=== PATIENT | female | born 1945 | race Caucasian/White ===

== ENCOUNTER → 2018-05-04 | Outpatient (CLI) | payer OTHER ==
[~2018-05-04] MED LIST: CLONAZEPAM 0.50.5 M1 PO; CRESTOR10 MG PO; IMDUR 30 MG TAB30 M1 PO; MIRALAX17 GM PO; NITROGLYCERIN0.4 MG SUBLING; OXYCONTIN40 MG PO; PLAVIX 75 MG TA75 M1 PO; SYNTHROID200 MCG PO; TRAZODONE HCL50 MG PO; TRILIPIX45 MG PO; ZANAFLEX4 MG PO
--- NOTE | ~2018-05-04 | EKG ---
[address] [address] ELECTROCARDIOGRAM REPORT Name: GUILLE WRIGHT Room #: [facility]#: [id number] Admission: 05/04/18 Attend Phys: Ashok Ren MD Discharge: Date of : 49 Report #: [id number] THIS REPORT FOR: //name// [facility] Test Date: 2018-05-04 Test Time: 06:46:19 Pat Name: GUILLE WRIGHT Department: Room: Gender: F [employer]: ELADIO : 1945 Requested By: Ashok Ren Order Number: [id number] : Moiz Sanchez Measurements Intervals [place] Rate: 65 P: 50 [place]: 130 QRS: 10 QRSD: 103 T: 159 QT: 473 QTc: 492 Interpretive Statements Sinus rhythm LVH with secondary repolarization abnormality Borderline prolonged QT interval No previous ECG available for comparison Electronically Signed On 05-04-2018 9:57:03 CDT by Moiz Sanchez [email or web address] <ELECTRONICALLY SIGNED> By: Moiz Sanchez MD 05/04/18 [id number] MD EDILBERTO Maurice
== END | disposition home or self-care (01) ==
LOC: LITH 06:05
DX: N20.1 Calculus of ureter (principal); I25.10 Atherosclerotic heart disease of native coronary artery without angina pectoris; E78.00 Pure hypercholesterolemia, unspecified; E07.9 Disorder of thyroid, unspecified; Z87.19 Personal history of other diseases of the digestive system; Z87.01 Personal history of pneumonia (recurrent); Z95.5 Presence of coronary angioplasty implant and graft; Z90.710 Acquired absence of both cervix and uterus; Z98.890 Other specified postprocedural states; Z79.899 Other long term (current) drug therapy; Z91.041 Radiographic dye allergy status